=== PATIENT | female | born 1985 | race American Indian/Alaskan Native ===

== ENCOUNTER 2017-03-17 13:28 | Emergency (ER) | payer MEDICAID ==
[2017-03-17 13:53] VITALS: TEMP 98.5
--- NOTE | 2017-03-17 14:01 | ED PDOC ---
Arrival/HPI - General Chief Complaint: Back Pain Time Seen by Provider: 03/17/17 13:59 Historian: Patient - History of Present Illness Symptom Onset: Gradual Symptom Course: Unchanged Severity Level: Mild Activities at Onset: Rest Context: Home Past Medical History - Provider Review Nursing Documentation Reviewed: Yes - Cardiac Hx Cardiac Disorders: No - Pulmonary Hx Respiratory Disorders: No - Neurological Hx Neurological Disorder: Yes Hx Seizures: Yes - HEENT Hx HEENT Disorder: No - Renal Hx Renal Disorder: No - Endocrine/Metabolic Hx Endocrine Disorders: No - Hematological/Oncological Hx Blood Disorders: Yes Hx Anemia: Yes - Integumentary Hx Dermatological Disorder: No - Musculoskeletal/Rheumatological Hx Musculoskeletal Disorders: No - Gastrointestinal Hx Gastrointestinal Disorders: No - Genitourinary/Gynecological Other/Comment: Fibroids - Psychiatric Hx Substance Use: No Family/Social History - Physician Review Nursing Documentation Reviewed: Yes Family/Social History: No Known Family HX Smoking Status: Never Smoked Hx Alcohol Use: No Hx Substance Use: No Allergies/Home Meds Allergies/Adverse Reactions: Allergies No Known Allergies Allergy (Verified 03/17/17 13:50) Home Medications: Home Meds Medication Instructions Recorded Confirmed Folic Acid 1 mg PO DAILY 03/17/17 03/17/17 Levetiracetam [Keppra] 750 mg PO BID 03/17/17 03/17/17 Multivitamin with Iron [Daily 1 each PO DAILY 03/17/17 03/17/17 Vitamin + Iron] Vit No.126/Iron/Folic 1 tab PO DAILY 03/17/17 03/17/17 [Prenavite] Review of Systems - Physician Review All systems were reviewed & negative as marked: Yes Physical Exam Vital Signs Reviewed: Yes Vital Signs Temp Pulse Resp BP Pulse Ox 03/17/17 13:52 98.5 F 103 H 16 105/69 98 Temperature: Afebrile Blood Pressure: Normal Pulse: Tachycardic Respiratory Rate: Normal Appearance: Positive for: Well-Appearing, Non-Toxic, Comfortable Pain Distress: None Mental Status: Positive for: Alert and Oriented X 3 Medical Decision Making ED Course and Treatment: 03/17/17 Impression: Differential Diagnosis included but are not limited to: Plan: -- -- Reassess and disposition Progress Notes: Disposition/Present on Arrival - Present on Arrival History of DVT/PE: No History of Uncontrolled Diabetes: No Urinary Catheter: No History of Decub. Ulcer: No History Surgical Site Infection Following: None - Disposition Forms: [employer] (Amharic)
--- NOTE | 2017-03-17 14:29 | ED PDOC ---
Arrival/HPI - History of Present Illness Time/Duration: 1 week Symptom Onset: Gradual Symptom Course: Unchanged Severity Level: Moderate <Sandy Deal - Last Filed: 03/17/17 18:06> <Colt Baez - Last Filed: 03/17/17 18:22> - General Chief Complaint: Back Pain Time Seen by Provider: 03/17/17 13:59 - History of Present Illness Narrative History of Present Illness (Text): 03/17/17 14:24 31 y/o F at 24wk1d presents for low back pain ongoing for a few days. Patient states that pain began gradually but has been constant since onset. Patient used "icy hot pack" which helped slightly. Patient denies having any trauma, numbness or tingling in LE. Patient also c/o pelvic pain ongoing for a few days. Patient denies having any vaginal discharge, vaginal bleeding. Patient states that she feels movement. 03/17/17 14:30 (Sandy Deal) Past Medical History - Provider Review Nursing Documentation Reviewed: Yes - Cardiac Hx Cardiac Disorders: No - Pulmonary Hx Respiratory Disorders: No - Neurological Hx Neurological Disorder: Yes Hx Seizures: Yes - HEENT Hx HEENT Disorder: No - Renal Hx Renal Disorder: No - Endocrine/Metabolic Hx Endocrine Disorders: No - Hematological/Oncological Hx Blood Disorders: Yes Hx Anemia: Yes - Integumentary Hx Dermatological Disorder: No - Musculoskeletal/Rheumatological Hx Musculoskeletal Disorders: No - Gastrointestinal Hx Gastrointestinal Disorders: No - Genitourinary/Gynecological Other/Comment: Fibroids - Psychiatric Hx Substance Use: No <Sandy Deal - Last Filed: 03/17/17 18:06> Family/Social History - Physician Review Nursing Documentation Reviewed: Yes Family/Social History: Unknown Family HX Smoking Status: Never Smoked Hx Alcohol Use: No Hx Substance Use: No <Sandy Deal - Last Filed: 03/17/17 18:06> Allergies/Home Meds <Sandy Deal - Last Filed: 03/17/17 18:06> <Colt Baez - Last Filed: 03/17/17 18:22> Allergies/Adverse Reactions: Allergies No Known Allergies Allergy (Verified 03/17/17 13:50) Home Medications: Home Meds Medication Instructions Recorded Confirmed Folic Acid 1 mg PO DAILY 03/17/17 03/17/17 Levetiracetam [Keppra] 750 mg PO BID 03/17/17 03/17/17 Multivitamin with Iron [Daily 1 each PO DAILY 03/17/17 03/17/17 Vitamin + Iron] Vit No.126/Iron/Folic 1 tab PO DAILY 03/17/17 03/17/17 [Prenavite] Review of Systems - Review of Systems Constitutional: Normal Eyes: Normal ENT: Normal Respiratory: Normal. absent: SOB, Cough Cardiovascular: Normal. absent: Chest Pain, Palpitations Gastrointestinal: Abdominal Pain (pelvic pain ). absent: Constipation, Diarrhea , Nausea, Vomiting Genitourinary Female: absent: Dysuria, Frequency, Hematuria, Vaginal Bleeding, Vaginal Discharge Musculoskeletal: Back Pain (low back pain ) Skin: absent: Rash, Skin Lesions Neurological: Normal. absent: Headache Endocrine: Normal Hemo/Lymphatic: Normal Psychiatric: Normal. absent: Anxiety, Depression <Karim,Sandy - Last Filed: 03/17/17 18:06> Physical Exam Temperature: Afebrile Blood Pressure: Normal Pulse: Regular Respiratory Rate: Normal Appearance: Positive for: Well-Appearing, Non-Toxic, Comfortable Pain Distress: Mild Mental Status: Positive for: Alert and Oriented X 3 - Systems Exam Head: Present: Atraumatic, Normocephalic Mouth: Present: Moist Mucous Membranes Neck: Present: Normal Range of Motion Respiratory/Chest: Present: Clear to Auscultation, Good Air Exchange. No: Respiratory Distress, Accessory Muscle Use, Wheezes, Rales, Rhonchi Cardiovascular: Present: Normal S1, S2, Tachycardic. No: Murmurs, Irregular Rhythm Abdomen: Present: Normal Bowel Sounds. No: Tenderness, Distention Genitourinary/Pelvic Exam: Present: Cervical os Closed. No: Vaginal Discharge, Vaginal Bleeding, Vaginal Lesions, Adenexal Tenderness, Adenexal Mass, Cervical Motion Tendernes, Odor Upper Extremity: Present: Normal Inspection, Neurovascularly Intact. No: Edema Lower Extremity: Present: Normal Inspection, Neurovascularly Intact. No: Edema Neurological: Present: GCS=15 Skin: Present: Warm, Dry, Normal Color. No: Rashes Psychiatric: Present: Alert, Oriented x 3, Normal Insight, Normal Concentration <Karim,Sandy - Last Filed: 08/03/17 18:06> Vital Signs Reviewed: Yes <Colt Baez - Last Filed: 03/17/17 18:22> Vital Signs Temp Pulse Resp BP Pulse Ox 03/17/17 18:04 89 18 120/78 98 03/17/17 15:29 96 H 18 118/72 97 03/17/17 13:52 98.5 F 103 H 16 105/69 98 Medical Decision Making <Sandy Deal - Last Filed: 03/17/17 18:06> <Colt Baez - Last Filed: 03/17/17 18:22> ED Course and Treatment: 03/17/17 14:33 Will check UA and urine culture, pelvic ultrasound for viability, CBC, BMP. Patient will be given Tylenol for pain 03/17/17 15:37 Pelvic exam is done with medical claims representative RN in room. negative exam. Cervical os is closes. Will await pelvic US 03/17/17 17:03 UA is positive. Will treat with macrobid 03/17/17 17:49 Preliminary pelvic US result showed viability with HR of 127 and cephalad position and 23 weeks. Patient's OBGYn is Dr. Cris Cha. Dr. Baez and I spoke with Dr. Candelaria OBGYSaud, Who is covering for Dr. Cha about patient and discussed the Pelvic US result. Recommended discharge home with close OBGYN follow up. ( Sandy Deal) A 31 year old female complains of lower back pain. In agreement with resident note, which includes further HPI details. Patient was seen and evaluated with resident, came up with plan and treatment together. Mild mild pelvic tenderness. No lower abdominal tenderness. No guarding. Pelvic completed by Resident as noted. Sono reviewed. Discussed case with Dr. Candelaria who works with patient's OBGYN Dr. Cris Cha who agrees that patient can be discharged home for UTI tx with Macrobid and seen at the office. We agreed there is no need for monitoring. Patient was advised to return to the ED if symptoms worsen or any other concern. (Colt Baez) - Lab Interpretations Narrative Lab Interpretation (Text): 03/17/17 17:03 UA is positive for UTI (Sandy Deal) Lab Results: 03/17/17 15:26 03/17/17 15:26 Lab Results 03/17/17 15:52: Urine Color Yellow, Urine Appearance Cloudy, Urine pH 7.0, Ur Specific [place] 1.020, Urine Protein Negative, Urine Glucose (UA) Negative, Urine Ketones Negative, Urine Blood Small H, Urine Nitrate Negative, Urine Bilirubin Negative, Urine Urobilinogen 1.0 H, Ur Leukocyte Esterase Large H, Urine RBC 0 - 2, Urine WBC 5 - 10, Ur Epithelial Cells 6 - 8, Amorphous Sediment Many, Urine Bacteria Many 03/17/17 15:26: Sodium 137, Potassium 4.1, Chloride 104, Carbon Dioxide 25, Anion Gap 12, BUN 6 L, Creatinine 0.5, Est GFR ( Amer) > 60, Est GFR (Non -Af Amer) > 60, Random Glucose 78, Calcium 10.2 03/17/17 15:26: WBC 8.1, RBC 3.49 L, Hgb 11.2 L, Hct 33.3 L, MCV 95.4, MCH 32.1 , MCHC 33.6, RDW 14.5, Plt Count 197, MPV 10.7 - RAD Interpretation Radiology Orders: 03/17/17 14:29 AGE [US] Routine - Medication Orders Current Medication Orders: Discontinued Medications Acetaminophen (Tylenol 325mg Tab) 650 mg PO STAT STA Stop: 03/17/17 14:30 Last Admin: 03/17/17 15:09 Dose: 650 mg Re-Assess: MAR Pain/Vitals Document 03/17/17 16:09 [facility] (Rec: 03/17/17 16:54 [id number]) Pain Reassessment Is This A Pain ReAssessment? No Nitrofurantoin Macrocrystals (Macrobid) 100 mg PO STAT STA Stop: 03/17/17 16:38 Last Admin: 03/17/17 17:32 Dose: 100 mg <Sandy Deal - Last Filed: 03/17/17 18:06> - PA / SLIDING JOINT [employer]KER / Resident Statement / has reviewed & agrees with the documentation as recorded. / has examined the patient and agrees with the treatment plan. - Scribe Statement The provider has reviewed the documentation as recorded by the Scribe <Colt Baez - Last Filed: 03/17/17 18:22> - Scribe Statement Deisy Sanabria training with Luisana Quinonez Provider Shadyibe Attestation: All medical record entries made by the Scribe were at my direction and personally dictated by me. I have reviewed the chart and agree that the record accurately reflects my personal performance of the history, physical exam, medical decision making, and the department course for this patient. I have also personally directed, reviewed, and agree with the discharge instructions and disposition. (Colt Baez) Disposition/Present on Arrival - Present on Arrival Any Indicators Present on Arrival: No History of DVT/PE: No History of Uncontrolled Diabetes: No Urinary Catheter: No History of Decub. Ulcer: No History Surgical Site Infection Following: None - Disposition Have Diagnosis and Disposition been Completed?: Yes Disposition Time: 17:49 Patient Plan: Discharge <Sandy Deal - Last Filed: 03/17/17 18:06> - Present on Arrival Any Indicators Present on Arrival: No - Disposition Have Diagnosis and Disposition been Completed?: Yes <Colt Baez - Last Filed: 03/17/17 18:22> - Disposition Diagnosis: , UTI (urinary tract infection) during Disposition: HOME/ ROUTINE Condition: STABLE Additional Instructions: Jessica Benites, thank you for letting us take care of you today. Your provider was Dr. Sandy Deal. You were treated for UTI, pelvic pain. The emergency medical care you received today was directed at your acute symptoms. If you were prescribed any medication, please fill it and take as directed. It may take several days for your symptoms to resolve. Return to the Emergency Department if your symptoms worsen, do not improve, or if you have any other problems. Please contact your doctor or call one of the physicians/clinics you have been referred to that are listed on the Patient Visit Information form that is included in your discharge packet. Bring any paperwork you were given at discharge with you along with any medications you are taking to your follow up visit. Our treatment cannot replace ongoing medical care by a primary care provider (PCP) outside of the emergency department. Thank you for allowing the [facility] team to be part of your care today. If you had an X-Ray or CT scan: A Radiologist will review the ED reading if any change in treatment is needed we will contact you. If you had a blood, urine, or wound culture: It will take several days for the results, if any change in treatment is needed we will contact you. If you had an STI test: It will take 48 hours for the results. Please call after 1 week if you have not heard back. Prescriptions: Nitrofurantoin Macrocrystal [Nitrofurantoin] 100 mg PO BID #14 capsule Referrals: Nigel Cisneros [Primary Care Provider] - Follow up with primary Forms: [email or web address] (Hungarian)
[2017-03-17 15:38] LABS: HEMOGLOBIN 11.2 gm/dL (12.0-16.0); MEAN CELL VOLUME 95.4 fL (80.0-105.0); MEAN CORPUSCULAR HEMOGLOBIN 32.1 pg (25.0-35.0); MEAN CORPUSCULAR HGB CONC 33.6 g/dl (31.0-37.0); MEAN PLATELET VOLUME 10.7 fl (7.0-11.0); RBC 3.49 10^6/uL (3.5-6.1); RED CELL DISTRIBUTION WIDTH 14.5 % (11.5-14.5); WHITE BLOOD COUNT 8.1 10^3/ul (4.5-11.0)
[2017-03-17 15:57] LABS: URINE BILIRUBIN NEGATIVE (NEGATIVE); URINE BLOOD SMALL (NEGATIVE); URINE GLUCOSE (UA) NEGATIVE (NEGATIVE); URINE LEUKOCYTE ESTERASE LARGE Leu/uL (NEGATIVE); URINE NITRATE NEGATIVE (NEGATIVE); URINE PROTEIN NEGATIVE mg/dL (<30 mg/dL)
[2017-03-17 15:58] LABS: URINE APPEARANCE CLOUDY (CLEAR); URINE COLOR YELLOW (YELLOW)
[2017-03-17 16:01] LABS: BLOOD UREA NITROGEN 6 mg/dL (7-21); CALCIUM 10.2 mg/dL (8.4-10.5); GFR AFRICAN-AMERICAN > 60; GFR NON-AFRICAN AMERICAN > 60
[2017-03-17 16:11] LABS: URINE AMORPHOUS SEDIMENT MANY; URINE BACTERIA MANY (NEG); URINE RBC 0 - 2 /hpf (0-2)
[2017-03-17 18:04] VITALS: RESP 18
[2017-03-17 18:12] VITALS: BP 120/78; PULSE 89; O2SAT 98
--- NOTE | 2017-03-18 11:39 | US ---
PROCEDURE: OB Pelvic Ultrasound HISTORY: pelvic pain COMPARISON: None available. FINDINGS: UTERUS: Gestational sac: Single intrauterine fetus in cephalic presentation. Heart rate: 127 bpm. BPD 5.49 cm corresponding to 22 weeks and 5 days of gestational age. HC to 19.90 cm corresponding to 23 weeks and 0 days of gestational age. AC 19.07 cm corresponding to 23 weeks and 6 days of gestational age. FL 4.15 cm corresponding to 23 weeks and 3 days of gestational age. age (Ultrasound estimated): 23 weeks and 2 days Delicia-gestational hemorrhage: None. Date of delivery (Ultrasound estimated) : There are 2 intramural fibroids in the anterior wall of the lower uterine segment measuring 5.5 x 5.6 x 6.4 cm and 5.4 x 4.4 x 5.0 cm. Placenta is anterior. CERVIX: Long and closed. No cervical abnormality seen. RIGHT OVARY: Not visualized. LEFT OVARY: Not visualized. FREE FLUID: None. OTHER FINDINGS: None. IMPRESSION: Single live intrauterine gestation with mean gestational age of 23 weeks and 2 days. The estimated date of delivery by ultrasound is 07/12/2017. Two intramural fibroids in the anterior wall of the lower uterine segment, the larger measures 5.5 x 5.6 x 6.4 cm. Please note this limited Ob ultrasound was done in the emergency room and should not be considered a complete examination. Dedicated anatomic survey is advised.
== END 2017-03-17 18:12 | disposition home or self-care (01) ==
LOC: ED 13:28 → MERGE 13:28 → ED 18:12
DX: O23.42 Unspecified infection of urinary tract in pregnancy, second trimester (principal); Z3A.24 24 weeks gestation of pregnancy

== ENCOUNTER 2017-08-04 15:05 | Emergency (ER) | payer MEDICAID ==
[2017-08-04 15:11] VITALS: BMI 31.8
[2017-08-04 15:21] VITALS: PULSE 106; RESP 18; O2SAT 100
[2017-08-04 15:23] VITALS: BP 152/79; TEMP 98.5
--- NOTE | 2017-08-04 15:34 | ED PDOC ---
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 Patient had a witnessed tonic-clonic seizure today. Denies any non- compliance with her seizure medications. Denies any alcohol use. Patient does admit lack of sleep for the past several weeks, due to recently giving , baby not sleeping through the night. No other significant past medical history. Patient denies any other complaints at this time. 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) - HEENT Hx HEENT Disorder: No - Renal Hx Renal Disorder: No - Endocrine/Metabolic Hx Endocrine Disorders: No - Hematological/Oncological Hx Blood Disorders: Yes Hx Anemia: Yes - Integumentary Hx Dermatological Disorder: No - Musculoskeletal/Rheumatological Hx Musculoskeletal Disorders: No - Gastrointestinal Hx Gastrointestinal Disorders: No - Genitourinary/Gynecological Hx Genitourinary Disorders: Yes Other/Comment: Fibroids - Psychiatric Hx Psychophysiologic Disorder: No Hx Substance Use: No - Anesthesia Hx Anesthesia: No Family/Social History - Physician Review Nursing Documentation Reviewed: Yes Family/Social History: No Known Family HX Smoking Status: Never Smoked Hx Alcohol Use: No Hx Substance Use: No Allergies/Home Meds Allergies/Adverse Reactions: Allergies No Known Allergies Allergy (Verified 08/04/17 15:43) Home Medications: Home Meds Medication Instructions Recorded Confirmed Levetiracetam [Keppra] 750 mg PO BID 03/17/17 08/04/17 Review of Systems - Physician Review All systems were reviewed & negative as marked: Yes - Review of Systems Constitutional: absent: Fevers Neurological: Seizure Physical Exam Vital Signs Reviewed: Yes Vital Signs Temp Pulse Resp BP Pulse Ox 08/04/17 15:21 98.5 F 106 H 18 152/79 H 100 Temperature: Afebrile Blood Pressure: Hypertensive Pulse: Tachycardic Respiratory Rate: Normal Appearance: Positive for: Well-Appearing, Non-Toxic, Comfortable Pain Distress: None Mental Status: Positive for: Alert and Oriented X 3 - Systems Exam Head: Present: Atraumatic, Normocephalic Pupils: Present: PERRL Extroacular Muscles: Present: EOMI Conjunctiva: Present: Normal Mouth: Present: Moist Mucous Membranes Neck: Present: Normal Range of Motion Respiratory/Chest: Present: Clear to Auscultation, Good Air Exchange. No: Respiratory Distress, Accessory Muscle Use Cardiovascular: Present: Regular Rate and Rhythm, Normal S1, S2. No: Murmurs Abdomen: Present: Normal Bowel Sounds. No: Tenderness, Distention, Peritoneal Signs Back: Present: Normal Inspection Upper Extremity: Present: Normal Inspection, Other (5/5 motor strength ). No: Cyanosis, Edema Lower Extremity: Present: Normal Inspection, Other (5/5 motor strength). No: Edema Neurological: Present: GCS=15, CN II-XII Intact, Speech Normal, Other (no pronator drift) Skin: Present: Warm, Dry, Normal Color. No: Rashes Psychiatric: Present: Alert, Oriented x 3, Normal Insight, Normal Concentration Medical Decision Making ED Course and Treatment: 08/04/17 15:32 Impression: A 31 year old female with seizure. Plan: -- EKG -- labs -- IV fluids -- Reassess and disposition Prior Visits: Notes and results from previous visits were reviewed. Patient was last seen in the emergency department on Progress Notes: EKG: Ordered, reviewed, and independently interpreted the EKG. Rate : 129 BPM Rhythm : sinus tachycardia Interpretation : No ectopic beat, no abnormal intervals, ST segments within normal limits, poor R wave progression in anteroseptal leads Comparison : No previous EKG for comparison. - Lab Interpretations Lab Results: 08/04/17 15:20 08/04/17 15:20 Lab Results 08/04/17 15:20: Sodium 144, Potassium 3.8, Chloride 107, Carbon Dioxide 26, Anion Gap 15, BUN 8, Creatinine 0.7, Est GFR ( Amer) > 60, Est GFR (Non- Af Amer) > 60, Random Glucose 94, Calcium 9.7, Magnesium 1.6 L, Total Bilirubin 0.5, AST 33, ALT 32, Alkaline Phosphatase 54, Total Protein 8.4 H, Albumin 4.4, Globulin 4.0, Albumin/Globulin Ratio 1.1 08/04/17 15:20: WBC 4.4 L D, RBC 3.89, Hgb 12.4, Hct 37.9, MCV 97.4, MCH 31.9, MCHC 32.7, RDW 14.2, Plt Count 168, MPV 12.3 H, Gran % 33.2 L, Lymph % (Auto) 57.9 H, [place] % (Auto) 5.5, Eos % (Auto) 2.5, Baso % (Auto) 0.9, Gran # 1.44, Lymph # 2.5, [place] # 0.2, Eos # 0.1, Baso # 0.04 I have reviewed the lab results: Yes - EKG Interpretation Interpreted by ED Physician: Yes Type: 12 lead EKG - Medication Orders Current Medication Orders: Discontinued Medications Sodium Chloride 1,000 ml/ IV (SUPPLIES) 1,000 mls @ 4,898.82 mls/hr IV ONCE ONE PRN Reason: 60 ML/KG/HR Stop: 08/04/17 15:30 Last Admin: 08/04/17 15:33 Dose: 4,898.82 mls/hr eMAR Start Stop Document 08/04/17 15:33 OCS (Rec: 08/04/17 15:34 OCS [id number]) Intravenous Solution Start Date 08/04/17 Start Time 15:34 End Date 08/04/17 End time 16:04 Total Infusion Time 30 Magnesium Sulfate 2 gm/ Sodium (Chloride) 104 mls @ 102 mls/hr IVPB ONCE ONE Stop: 08/04/17 17:09 Last Admin: 08/04/17 16:37 Dose: 102 mls/hr eMAR Start Stop Document 08/04/17 16:37 OCS (Rec: 08/04/17 16:37 OCS [id number]) Intravenous Solution Start Date 08/04/17 Start Time 16:37 End Date 08/04/17 End time 17:38 Total Infusion Time 61 - Scribe Statement The provider has reviewed the documentation as recorded by the Davida Jackson Provider Scribe Attestation: All medical record entries made by the Shadyibkoki were at my direction and personally dictated by me. I have reviewed the chart and agree that the record accurately reflects my personal performance of the history, physical exam, medical decision making, and the department course for this patient. I have also personally directed, reviewed, and agree with the discharge instructions and disposition. Disposition/Present on Arrival - Present on Arrival Any Indicators Present on Arrival: No History of DVT/PE: No History of Uncontrolled Diabetes: No Urinary Catheter: No History of Decub. Ulcer: No History Surgical Site Infection Following: None - Disposition Have Diagnosis and Disposition been Completed?: Yes Diagnosis: Seizure Disposition: HOME/ ROUTINE Disposition Time: 17:39 Patient Plan: Discharge Patient Problems: Current Active Problems Problem Status Onset Seizure Acute Condition: GOOD Discharge Instructions (ExitCare): Epilepsy (ED) Additional Instructions: We will call in few days with keppra radha Referrals: Eva Cinseros MD [Primary Care Provider] - Follow up with primary Forms: [employer] (Japanese)
[2017-08-04 15:37] LABS: BASO # 0.04 K/mm3 (0.0-2.0); BASO % 0.9 % (0.0-3.0); EOS # 0.1 (0.0-0.7); EOS % 2.5 % (1.5-5.0); GRAN # 1.44 (1.4-6.5); GRAN % 33.2 % (50.0-68.0); HEMATOCRIT 37.9 % (36.0-48.0); LYMPH # 2.5 (1.2-3.4); LYMPH % 57.9 % (22.0-35.0); MEAN CELL VOLUME 97.4 fl (80.0-105.0); MEAN CORPUSCULAR HEMOGLOBIN 31.9 pg (25.0-35.0); MEAN CORPUSCULAR HGB CONC 32.7 g/dl (31.0-37.0); MEAN PLATELET VOLUME 12.3 fl (7.0-11.0); MONO # 0.2 (0.1-0.6); MONO % 5.5 % (1.0-6.0); RED CELL DISTRIBUTION WIDTH 14.2 % (11.5-14.5); WHITE BLOOD COUNT 4.4 10^3/ul (4.5-11.0)
[2017-08-04 16:00] LABS: ALKALINE PHOSPHATASE 54 U/L (38-126); ALT/SGPT 32 U/L (7-56); AST/SGOT 33 U/L (14-36); BILIRUBIN,TOTAL 0.5 mg/dL (0.2-1.3); BLOOD UREA NITROGEN 8 mg/dL (7-21); CALCIUM 9.7 mg/dL (8.4-10.5); CARBON DIOXIDE 26 mmol/L (21-33); CHLORIDE 107 mmol/L (98-107); GFR AFRICAN-AMERICAN > 60; GLUCOSE,RANDOM 94 mg/dL (70-110); MAGNESIUM 1.6 mg/dL (1.7-2.2); POTASSIUM 3.8 mmol/L (3.6-5.0); SODIUM 144 mmol/L (132-148); TOTAL PROTEIN 8.4 g/dL (5.8-8.3)
[2017-08-04 16:07] LABS: ALB/GLOB RATIO 1.1 (1.1-1.8)
[2017-08-04] MEDS ORDERED: Magnesium Sulfate 2 GM in Sodium Chloride 0.9% 100 ML IVPB ONE (16:08)
--- NOTE | 2017-08-07 09:44 | CARD ---
APPROVED REPORT EKG Measurement Heart [id number] FL [id number] [id number] <Conclusion> Sinus tachycardia PRWP NSSTW changes
== END 2017-08-04 18:00 | disposition home or self-care (01) ==
LOC: ED 15:05
DX: G40.909 Epilepsy, unspecified, not intractable, without status epilepticus (principal)
CPT/HCPCS: 80053; 80299; 83735; 85025; 96365; 99285; J3475; J7040